=== PATIENT | female | born 1955 | race Caucasian/White ===

== ENCOUNTER 2020-01-04 12:13 | Outpatient (CLI) | payer MEDICARE, SELFPAY ==
--- NOTE | ~2020-01-04 | XR_ITS ---
XR chest 2V 01/04/2020 12:37 Indication: History of bladder cancer. Procedure: 2 view chest Comparison: Comparison to multiple prior studies sequentially, with oldest reviewed study dated 09/2014. Findings: Heart size normal. Elevated right diaphragm. Chronic right basilar scarring. No focal pneum onia, edema or effusion. No pneumothorax. Impression: 1: No acute cardiopulmonary disease. Reviewed, dictated and finalized at location A. Impression: 1: No acute cardiopulmonary disease.
== END 2020-01-04 12:14 | disposition home or self-care (01) ==
PROVIDERS: PCP Urology; Visit Provider Urology
DX: Z85.51 Personal history of malignant neoplasm of bladder (principal)
CPT/HCPCS: 71046

== ENCOUNTER → 2020-03-12 11:17 | Outpatient (CLI) | payer MEDICARE, SELFPAY ==
--- NOTE | ~2020-03-12 | DEXA_ITS ---
Bone Density Report Name: Aydee Lopez Age: 64 Sex: Female Ethnicity: White Date of : 1955 Indication: postmenopausal; screening for osteoporosis; height loss; hysterectomy; Referring Provider: KEKE ALTAMIRANO Study: Bone densitometry was performed. Exam Date: March 12, 2020 Accession number: [id number] Bone Density: Region BMD T-score Z-score Classification AP Spine (L1-L4) 1.022 -0.2 1.7 Normal Femoral Neck (Left) 0.916 0.6 2.2 Normal Total Hip (Left) 1.037 0.8 2.1 Normal Femoral Neck (Right) 0.882 0.3 1.9 Normal Total Hip (Right) 1.001 0.5 1.8 Normal Total Hip Mean 1.019 0.7 2.0 Normal World Health Organization criteria for BMD impression classify patients as: Normal (T-score at or above -1.0), Osteopenia (T-score between -1.0 and -2.5), or Osteoporosis (T-score at or below -2.5). 10-year Fracture Risk: FRAX not reported because: All T-scores for Spine Total, Hip Total, Femoral Neck at or above -1.0 Previous Exams: Region Exam Age BMD T-score BMD Change BMD Change Date g/cm2 vs Baseline vs Previous AP Spine(L1-L4) 03/12/2020 64 1.022 -0.2 0.074* 0.028* 03/19/2017 61 0.993 -0.5 0.046* 0.013 08/19/2013 58 0.980 -0.6 0.032* -0.023* 10/28/2009 54 1.004 -0.4 0.056* 0.056* 09/29/2006 51 0.948 -0.9 Total Hip(Left) 03/12/2020 64 1.037 0.8 0.013 -0.024 03/19/2017 61 1.061 1.0 0.037* -0.033* 08/19/2013 58 1.094 1.2 0.070* 0.025 10/28/2009 54 1.069 1.0 0.045* 0.045* 09/29/2006 51 1.024 0.7 Total Hip(Right) 03/12/2020 64 1.001 0.5 0.028* -0.034* 03/19/2017 61 1.035 0.8 0.062* 0.021 08/19/2013 58 1.014 0.6 0.041* 0.036* 10/28/2009 54 0.978 0.3 0.005 0.005 09/29/2006 51 0.973 0.3 *Denotes significance at 95% confidence level, LSC for AP Spine = 0.022 g/cm2, LSC for Total Hip = 0.027 g/cm2 Clinical Information Provided by Patient: Has used the following medications: Vitamin D Has the following medical conditions: Hysterectomy Patient maximum height was 67 Menopause Age: 41 No regular weight bearing exercise Drinks caffeinated beverages Onset of menses at age 10 Number of children 2 Impression: The patient has normal bone mass. The BMD
== END ==
DX: Z78.0 Asymptomatic menopausal state (principal)
CPT/HCPCS: 77080

== ENCOUNTER 2020-11-26 10:50 | Outpatient (CLI) | payer MEDICARE, SELFPAY ==
--- NOTE | ~2020-11-26 | XR_ITS ---
EXAMINATION: XR chest 2V DATE: 11/26/2020 11:13 INDICATION: History of bladder cancer TECHNIQUE: Frontal and lateral views of the chest are obtained COMPARISON: 01/04/2020 FINDINGS: The lungs are free of acute opacities. There is no pleural effusion or pneumothorax. The ca rdiomediastinal silhouette is normal. There is moderate thoracic spondylosis. IMPRESSION: 1. No acute cardiopulmonary abnormality. Reviewed, dictated and finalized at location A.
== END 2020-11-26 10:51 | disposition home or self-care (01) ==
PROVIDERS: Visit Provider Urology
DX: Z85.51 Personal history of malignant neoplasm of bladder (principal)
CPT/HCPCS: 71046

== ENCOUNTER → 2020-11-27 10:27 | Outpatient (CLI) | payer MEDICARE, SELFPAY ==
--- NOTE | ~2020-11-27 | MM_ITS ---
EXAMINATION: MM screening [facility] BI w claudia HISTORY: Screening TECHNIQUE: Craniocaudal and mediolateral oblique 3-D tomosynthesis images were obtained and synthetic 2-D images were generated. CAD analysis was submitted and interpreted. COMPARISON: Comparison to multiple prior studies sequentially, with oldest reviewed study dated 11/2014. BREAST PARENCHYMAL COMPOSITION: There are scattered areas of fibroglandular density. FINDINGS: There is no evidence of suspicious mass, calcification, or architectural distortion to sugg est malignancy in either breast. There has been no suspicious interval change. IMPRESSION: 1. No mammographic evidence of malignancy. 2. Recommend routine screening mammography in one year. BI-RADS Category 1: Negative Reviewed, dictated and finalized at location A.
== END ==
DX: Z12.31 Encounter for screening mammogram for malignant neoplasm of breast (principal)
CPT/HCPCS: 77063; 77067

== ENCOUNTER 2021-11-10 09:52 | Outpatient (CLI) | payer MEDICARE, SELFPAY ==
--- NOTE | ~2021-11-10 | XR_ITS ---
EXAMINATION: XR chest 2V DATE: 11/10/2021 10:14 INDICATION: Bladder cancer. TECHNIQUE: Frontal and lateral views of the chest were obtained. COMPARISON: Chest 2 views 11/26/2020 FINDINGS: There is chronic eventration of anterior right hemidiaphragm. No pleural effusion or pneumo thorax. The heart size is normal. IMPRESSION: 1. No acute cardiopulmonary disease. Reviewed, dictated and finalized at location B.
== END 2021-11-10 09:53 | disposition home or self-care (01) ==
PROVIDERS: Visit Provider Urology
DX: Z85.51 Personal history of malignant neoplasm of bladder (principal)
CPT/HCPCS: 71046

== ENCOUNTER → 2022-05-26 15:51 | Outpatient (CLI) | payer MEDICARE, SELFPAY ==
--- NOTE | ~2022-05-26 | MM_ITS ---
EXAMINATION: MM screening [facility] BI w claudia HISTORY: Screening TECHNIQUE: Craniocaudal and mediolateral oblique 3-D tomosynthesis images were obtained and synthetic 2-D images were generated. CAD analysis was submitted and interpreted. COMPARISON: Comparison to multiple prior studies sequentially, with oldest reviewed study dated 11/2014. BREAST PARENCHYMAL COMPOSITION: Breast composed of scattered areas of fibroglandular density FINDINGS: There is no evidence of suspicious mass, calcification, or architectural distortion to sugg est malignancy in either breast. There has been no suspicious interval change. IMPRESSION: 1. No mammographic evidence of malignancy. 2. Recommend routine screening mammography in one year. BI-RADS Category 1: Negative Reviewed, dictated and finalized at location A.
--- NOTE | ~2022-05-26 | DEXA_ITS ---
Bone Density Report Name: HADLEY SHORT Age: 67 Sex: Female Ethnicity: White Date of : 1955 Indication: postmenopausal; screening for osteoporosis; height loss; inflammatory bowel disease; prior fracture; hysterectomy; Referring Provider: KEKE ALTAMIRANO Study: Bone densitometry was performed. Exam Date: May 26, 2022 Accession number: [id number] Bone Density: Region BMD T-score Z-score Classification AP Spine (L1-L4) 1.022 -0.2 1.8 Normal Femoral Neck (Left) 0.912 0.6 2.3 Normal Total Hip (Left) 1.037 0.8 2.2 Normal Femoral Neck (Right) 0.843 -0.1 1.7 Normal Total Hip (Right) 0.995 0.4 1.9 Normal Total Hip Mean 1.016 0.6 2.1 Normal World Health Organization criteria for BMD impression classify patients as: Normal (T-score at or above -1.0), Osteopenia (T-score between -1.0 and -2.5), or Osteoporosis (T-score at or below -2.5). 10-year Fracture Risk: FRAX not reported because: All T-scores for Spine Total, Hip Total, Femoral Neck at or above -1.0 Prior hip or vertebral fracture Previous Exams: Region Exam Age BMD T-score BMD Change BMD Change Date g/cm2 vs Baseline vs Previous AP Spine(L1-L4) 05/26/2022 67 1.022 -0.2 0.074* 0.000 03/12/2020 64 1.022 -0.2 0.074* 0.028* 03/19/2017 61 0.993 -0.5 0.046* 0.013 08/19/2013 58 0.980 -0.6 0.032* -0.023* 10/28/2009 54 1.004 -0.4 0.056* 0.056* 09/29/2006 51 0.948 -0.9 Total Hip(Left) 05/26/2022 67 1.037 0.8 0.013 0.000 03/12/2020 64 1.037 0.8 0.013 -0.024 03/19/2017 61 1.061 1.0 0.037* -0.033* 08/19/2013 58 1.094 1.2 0.070* 0.025 10/28/2009 54 1.069 1.0 0.045* 0.045* 09/29/2006 51 1.024 0.7 Total Hip(Right) 05/26/2022 67 0.995 0.4 0.022 -0.007 03/12/2020 64 1.001 0.5 0.028* -0.034* 03/19/2017 61 1.035 0.8 0.062* 0.021 08/19/2013 58 1.014 0.6 0.041* 0.036* 10/28/2009 54 0.978 0.3 0.005 0.005 09/29/2006 51 0.973 0.3 *Denotes significance at 95% confidence level, LSC for AP Spine = 0.022 g/cm2, LSC for Total Hip = 0.027 g/cm2 Clinical Information Provided by Patient: Have had a previous hip or vertebral fracture Has had a low trauma fracture Has used the following medications: Vi
== END ==
DX: Z12.31 Encounter for screening mammogram for malignant neoplasm of breast (principal); Z78.0 Asymptomatic menopausal state; Z13.820 Encounter for screening for osteoporosis
CPT/HCPCS: 77063; 77067; 77080

== ENCOUNTER 2022-11-23 09:48 | Outpatient (CLI) | payer MEDICARE, SELFPAY ==
--- NOTE | ~2022-11-23 | XR_ITS ---
Clinical Indication: Bladder cancer PA and lateral views of the chest: Comparison: 11/10/2021 Findings: The lungs are clear, without evidence of focal consolidation or pleural effusion. Stable ev entration of the right hemidiaphragm. Cardiomediastinal silhouette is within normal limits. Bones and soft tissues are unremarkable. Impression: Clear lungs. Reviewed, dictated and finalized at location . Impression: Clear lungs.
== END 2022-11-23 09:49 | disposition home or self-care (01) ==
PROVIDERS: Visit Provider Urology
DX: Z85.51 Personal history of malignant neoplasm of bladder (principal)
CPT/HCPCS: 71046

== ENCOUNTER 2023-12-06 09:50 | Outpatient (CLI) | payer MEDICARE, SELFPAY ==
--- NOTE | ~2023-12-06 | XR_ITS ---
Clinical Indication: Bladder cancer PA and lateral views of the chest: Comparison: 11/23/2022 Findings: The lungs are clear, without evidence of focal consolidation or pleural effusion. Cardiome diastinal silhouette is within normal limits. Bones and soft tissues are unremarkable. Impression: Normal chest. Reviewed, dictated and finalized at location . Impression: Normal chest.
== END 2023-12-06 09:51 | disposition home or self-care (01) ==
PROVIDERS: Visit Provider Urology
DX: Z85.51 Personal history of malignant neoplasm of bladder (principal)
CPT/HCPCS: 71046

== ENCOUNTER 2024-04-06 13:09 | Outpatient (CLI) | payer MEDICARE, SELFPAY ==
--- NOTE | ~2024-04-06 | MM_ITS ---
EXAMINATION: MM screening [facility] BI w claudia HISTORY: Screening mammogram TECHNIQUE: Craniocaudal and mediolateral oblique 3-D tomosynthesis images were obtained and synthetic 2-D images were generated. CAD analysis was submitted and interpreted. COMPARISON: 05/26/2022, 11/27/2020, 07/29/2019, 05/31/2018 BREAST PARENCHYMAL COMPOSITION:Not Dense. The breasts are almost entirely fatty FINDINGS: No suspicious mass, calcification, or architectural distortion are identified in either yamilet ast to suggest malignancy. There has been no suspicious interval change. IMPRESSION: No mammographic evidence of malignancy. Recommend routine screening mammography in one year. BI-RADS Category 1: Negative Reviewed, dictated and finalized at location .
== END 2024-04-06 13:10 | disposition home or self-care (01) ==
DX: Z12.31 Encounter for screening mammogram for malignant neoplasm of breast (principal)
CPT/HCPCS: 77063; 77067

== ENCOUNTER 2024-10-30 13:34 | Outpatient (CLI) | payer MEDICARE, SELFPAY ==
--- NOTE | ~2024-10-30 | DEXA_ITS ---
Bone Density Report Name: HADLEY SHORT Age: 69 Sex: Female Ethnicity: White Date of : 1955 Indication: postmenopausal; screening for osteoporosis; height loss; hysterectomy; Referring Provider: EVELIA, KEKE Bryant Study: Bone densitometry was performed. Exam Date: October 30, 2024 Accession number: [id number] Bone Density: Region BMD T-score Z-score Classification AP Spine(L1-L4) 1.025 -0.2 2.0 Normal Femoral Neck (Left) 0.846 0.0 1.9 Normal Total Hip (Left) 1.049 0.9 2.5 Normal Femoral Neck (Right) 0.860 0.1 2.0 Normal Total Hip (Right) 1.038 0.8 2.4 Normal Total Hip Mean 1.044 0.9 2.5 Normal World Health Organization criteria for BMD impression classify patients as: Normal (T-score at or above -1.0), Osteopenia (T-score between -1.0 and -2.5), or Osteoporosis (T-score at or below -2.5). 10-year Fracture Risk: FRAX not reported because: All T-scores for Spine Total, Hip Total, Femoral Neck at or above -1.0 Clinical Information Provided by Patient: Has used the following medications: HRT (i.e. estrogen/hormone therapy), Vitamin D, Calcium Has the following medical conditions: Hysterectomy Patient maximum height was 66.0 Menopause Age: 41 No regular weight bearing exercise Onset of menses at age 9 Number of children 2 Impression: The patient has normal bone mass. Discussion: BONE DENSITY IS ABOVE THE MINIMUM DESIRABLE LEVEL AT ALL SKELETAL SITES TESTED. This patient?s bone mineral density is above the minimum desirable level (T-score -1.0 or better) at all sites measured. The patient should follow a healthful lifestyle (good nutrition with adequate calcium and vitamin D, and appropriate weight-bearing exercise). Follow-Up: Consider repeating this study in 5 years or sooner if there is some new clinical indication. Reported by: SIXTO on 10/30/2024 2:11:00 PM. Reviewed, dictated and finalized at location Jess FANG
--- OUTSIDE RECORDS SUMMARY | 2024-10-30 15:33 | XMS_ITS | Clinical Summary ---
Author Organization [facility] Address [address] [place] [address] Care Team Providers Care Kitchen Cleaner Name Role Phone Hoang Chadwick MD Primary Care Provider [phone] Rachel Lazo RN Unavailable [phone] Source Comments [facility],non-owned Affiliates and Associated Physician Practices is amultiple site organization consisting of ambulatory clinics and hospital sitesin [place], [place], [place] and [place]. This disclosure is being madepursuant to the Care Everywhere program and may not contain all information available regarding this patient. Last updated 18.[facility] Allergies Active Allergy Reactions Criticality Noted Date Comments Anthony Inhibitors Cough 01/08/2010 Adhesive Sensitivity 02/10/2014 Medications * Be aware that medications may not be up to date on this document. Alwaysverify current medications with the patient. Medication Sig Dispensed Refills Start Date End Date Status Nutritional Supplements (JUICE PLUS FIBRE PO) Take by mouth. Active hyoscyamine 0.125 MG tabletIndications:Isch emic colitis, enteritis, or enterocolitis (HCC) Dissolve 1 Tab under the tongue every 4 hours as needed for Spasms. 60 Tab 6 03/01/2013 Active PATADAY 0.2 % ophthalmic solution INSTILL 1 DROP ONCE DAILY DIRECTED 3 Bottle 3 08/18/2014 Active hydrochlorothiazide (HYDRODIURIL) 25 MG tablet TAKE 1 TABLET DAILY 90 Tab 2 09/19/2014 Active KLOR-CON M20 20 MEQ tablet TAKE 1 TABLET DAILY 90 Tab 2 09/19/2014 Active losartan (COZAAR) 50 MG tablet TAKE 1 TABLET DAILY 90 Tab 2 09/19/2014 Active levothyroxine (SYNTHROID) 100 MCG tablet TAKE 1 TABLET DAILY BEFORE BREAKFAST 90 Tab 2 09/19/2014 Active CRESTOR 5 MG tablet TAKE 1 TABLET DAILY 90 Tab 3 09/25/2014 Active triamcinolone acetonide (KENALOG) 0.1 % creamIndications:Atopi c eczema Apply to affected area 3 times daily. 80 g 3 09/28/2014 Active EFFEXOR XR 75 MG capsuleIndications:RAD (generalized anxiety disorder) 1 Cap daily with breakfast. 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 (AF LURIA, FLUZONE TRIVALENT; 6MO+) (IIV3) 04/14/2013,06/22/2012,04/22/2011, 010,07/10/2009 INFLUENZA VACCINE, QUADR. (A FLURIA, FLUZONE QUADRIVALENT; 6MO+) (IIV4) 05/23/2014 TDAP (7yrs+) 02/19/2014 Family History Medical History Relation Name Comments Thyroid Disease Brother Cancer Father Heart Disease Father Heart Failure Father Arthritis Mother Arthritis - Osteo Mother Heart Disease Mother Heart Failure Mother Hypertension Mother Relation Name Status Comments Brother Father Mother Social History Tobacco Use Types Packs/Day Years Used Date Smoking Tobacco: Never Tobacco Cessation:Counseling Given: Yes Alcohol Use Standard Drinks/Week Comments No 0 (1 standard drink = 0.6 oz pur e alcohol) Sex and Gender Information Value Date Recorded Sex Assigned at Not on file Gender Identity Not on file Sexual Orientation Not on file Last Filed Vital Signs Vital Sign Reading Time Taken Comments Blood Pressure 112/60 01/23/2015 11:02 AM CDT Pulse 86 02/12/2014 5:05 PM CDT Temperature 36.1 C (97 F) 02/12/2014 5:05 PM CDT Respiratory Rate 20 02/12/2014 5:05 PM CDT Oxygen Saturation 97% 02/12/2014 5:05 PM CDT Inhaled Oxygen Concentration - - Weight 91.6 kg (202 lb) 01/23/2015 11:02 AM CDT Height 167.6 cm (5' 6 ) 01/23/2015 11:02 AM CDT Body Mass Index 32.6 01/23/2015 11:02 AM CDT Plan of Treatment Health Maintenance Due Date Last Done Comments COLOGUARD (AGES 45-75) - COLON CA SCREENING 1955 CT COLONOGRAPHY - COLON CA SCREENING 1955 FIT - COLON CA SCREENING 1955 FLEX SIG - COLON CA SCREENING 1955 MEDICARE AWV 12 MONTHS 1955 HEPATITIS C SCREENING 04/05/1971 PNEUMOCOCCAL VACCINE 50+ (1 of 1 - PCV) 2003 ZOSTER VACCINE (1 of 2) 2003 BONE DENSITY TESTING 08/19/2015 08/19/2013 MAMMOGRAM 08/21/2015 08/21/2013, 07/27, 09/24/2011, Additional history exists COLON MONITORING 02/13/2024 02/12/2014, 02/12/2014 COLONOSCOPY - COLON CA SCREENING 02/13/2024 02/12/2014, 02/12/2014, 01/07/2005 Colorectal Cancer Screening 02/13/2024 DTAP/TDAP/TD VACCINES (2 - Td or Tdap) 02/20/2024 02/19/2014 COVID-19 VACCINE (1 - season) 2024 DEPRESSION SCREENING 07/26/2024 INFLUENZA VACCINE (Season Ended) 2025 05/23/2014, 04/14/2013, 06/22/2012, Additional history exists Respiratory Syncytial Virus (RSV) Vaccine Pt: or over 60 yrs (1 - 1-dose 75+ series) 2028 HEPATITIS B VACCINE Aged Out No longe r eligible based on patient's age to complete this topic HIB VACCINE Aged Out No longer eligi ble based on patient's age to complete this topic HPV VACCINE Aged Out No longer eligi ble based on patient's age to complete this topic MENINGOCOCCAL (Group B) VACCINE SHARED DECISION-MAKING Aged Out No longer eligible based on patient's age to complete this topic MENINGOCOCCAL GROUPS A/C/Y/W VACCINE Aged Out No longer eligible based on patient's age to complete this topic Goals Goal Patient Goal Type Associated Problems Recent Progress Patient-Stated? Author [facility] Lifestyle: Have labs drawn Lifestyle No Mabel Sanchez MA Procedures Procedure Name Priority Date/Time Associated Diagnosis Comments MAMMO BILAT SCREENING Routine 08/21/2013 DEXA BONE DENSITY 2 SITES Routine 08/19/2013 Screening for unspecified condition from Last 3 Months or Most Recently Relevant to Health Maintenance Results * MAMMO SCREENING DIGITAL IMAGE BILAT (08/21/2013) Anatomical Region Laterality Modality Breast Bilateral Other Provider Unknown MAMMO ORDERABLES * DEXA BONE DENSITY 2 SITES (08/19/2013) Anatomical Region Laterality Modality Other Hoang Chadwick MD DEXA ORDERABLES from Last 3 Months or Most Recently Relevant to Health Maintenance Advance Directives Documents on File Type Date Recorded Patient Advertising Columnist Expl anation Adv Directive/Living Will/POA 02/13/2014 4:23 PM * Full Code (Latest Code Status on File) Date Activated Date Inactivated Comments 02/10/2014 11:08 AM 02/12/2014 8:37 PM Care Teams Kitchen Cleaner Relationship Specialty Start Date End Date Hoang Chadwick MD [address] [id number] PCP - General 12/21/08 Rachel Lazo, RN Farmworker [employer] 02/12/14
--- OUTSIDE RECORDS SUMMARY | 2024-10-30 15:33 | XMS_ITS | Encounter Summary ---
Author Organization [facility] Address [address] [place] [address] Care Team Providers Care Naval Science Teacher Name Role Phone Hoang Chadwick MD Primary Care Provider + Hoang Chadwick MD Unavailable [phone] Encounter Details Date Type Department Care Team (Late st Contact Info) Description 12/06/2023 Orders Only [facility] [place] [address] [place] [address] Scanning, Provider Social History Tobacco Use Types Packs/Day Years Used Date Smoking Tobacco: Never Smokeless Tobacco: Never Alcohol Use Standard Drinks/Week Comments No 0 (1 standard drink = 0.6 oz pur e alcohol) AUDIT-C Answer Date Recorded Q1: How often do you have a drink containing alcohol? Never 08/06/2022 Q2: How many drinks containi ng alcohol do you have on a typical day when you are drinking? Patient does not drink Q3: How often do you have si x or more drinks on one occasion? 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 on file Not on file Not on file documented as of this encounter Plan of Treatment Not on file documented as of this encounter Procedures Procedure Name Priority Date/Time Associated Diagnosis Comments SCAN - RADIOLOGY/IMAGING 12/06/2023 documented in this encounter Results * SCAN - RADIOLOGY/IMAGING (12/06/2023) Anatomical Region Laterality Modality Other us Provider Scanning Final Result documented in this encounter Visit Diagnoses Not on filedocumented in this encounter Care Teams Naval Science Teacher Relationship Specialty Start Date End Date Hoang Chadwick MD [address] [address] PCP - General 10/26/16 Hoang Chadwick MD [address] [address] 10/26/16 documented as of this encounter
--- OUTSIDE RECORDS SUMMARY | 2024-10-30 15:33 | XMS_ITS | Encounter Summary ---
Author Organization [facility] Address [address] [place] [address] Care Team Providers Care Mica Laminating Machine Feeder Name Role Phone Hoang Chadwick MD Primary Care Provider [phone] Rachel Lazo RN Unavailable [phone] Encounter Details Date Type Department Care Team (Late st Contact Info) Description 11/12/2021 Lab Requisition [facility] Care Pathology Lab [address] [place] [address] Linda Sinha MD [address] [place], [place] [id number] Illness, unspecified Social History Tobacco Use Types Packs/Day Years Used Date Smoking Tobacco: Never Alcohol Use Standard Drinks/Week Comments No 0 (1 standard drink = 0.6 oz pur e alcohol) Sex and Gender Information Value Date Recorded Sex Assigned at Not on file Gender Identity Not on file Sexual Orientation Not on file documented as of this encounter Functional Status Functional Status Response Date of Assess ment Is person deaf or have serious hearing difficult y? No 02/10/2014 Is person blind or have serious difficulty seein g? No 02/10/2014 Does person have serious dif ficulty walking/climbing stairs? No 02/10/2014 Does person have difficulty dressing/bathing? No 02/10/2014 Does person have difficulty doing errands alone? No 02/10/2014 Cognitive Status Response Date of Assessm ent Does person have difficulty concentrating/remembering/making decisions? No 02/10/2014 documented as of this encounter Plan of Treatment Not on file documented as of this encounter Goals Goal Patient Goal Type Associated Problems Recent Progress Patient-Stated? Author [facility] Lifestyle: Have labs drawn Lifestyle No Mabel Sanchez MA documented as of this encounter Procedures Procedure Name Priority Date/Time Associated Diagnosis Comments PATH CONSULT ON REFERRED CASE Routine 11/12/2021 1:49 PM CDT Illness, unspecified documented in this encounter Results * PATH CONSULT ON REFERRED CASE (11/12/2021 1:49 PM CDT) Final Diagnosis Urine/Voided, (OSC: [id number], 11/10/2021): - Adequate for evaluation - Negative for high grade urothelial carcinoma - Urothelial cells and squamous cells 11/14/2021 3:38 PM CDT [facility] Amendment electronically signed by Aissatou Smith on 11/14/2021 at 3:38 PM Microscopic Description and Comment Performed. 11/14/2021 3:38 PM CDT [facility] Clinical History History of bladder cancer, Cystoscopy negative 11/14/2021 3:38 PM CDT [facility] Materials Received Prepared slide received from [facility] [id number]. All material will be returned. 11/14/2021 3:38 PM CDT [facility] Disclaimer The performance characteristics of all immunohistochemical and indirect immunofluorescence stains (if any) cited in this report were determined by the Histopathology Laboratory of [facility]. Some of these tests were developed by our own laboratory and have not been cleared or approved by the US Food and Drug Administration. The FDA does not require this test to go through premarket FDA review. These tests are used for clinical purposes. They should not be regarded as investigational or for research. This laboratory is certified under the Clinical Laboratory Improvement Amendments (CLIA) as qualified to perform high complexity clinical laboratory testing. This case has been personally reviewed and interpreted by the attending (teaching) pathologist. 11/14/2021 3:38 PM CDT [facility] Amended Report CHANGED Prepared slide received from [facility] [id number]. All material will be returned. TO Prepared slide received from [facility] [id number] All material will be returned. 11/14/2021 3:38 PM CDT [facility] Case Report Surgical Pathology Report Case: [id number] Authorizing Provider: Linda Sinha MD Collected: 11/12/2021 01:49 PM Ordering Location: [facility] Pathology Lab Received: 11/12/2021 01:49 PM Pathologist: Saran Coulter MD Specimen: Slide Consultation 11/14/2021 3:38 PM CDT [facility] Embedded Images 11/14/2021 3:38 PM CDT [facility] Pathology/Cytolo gy SURGICAL PATHOLOGY CONSULTATION AND REPORT ON REFERRED SLIDES PREPARED ELSEWHERE / Unknown 11/12/2021 1:49 PM CDT 11/12/2021 1:49 PM CDT Linda Sinha MD LAB - PATHOLOGY/CYTO LOGY ORDERABLES Performing Organization Address City/State/[place] Co de Phone Number [facility] [address] [phone] documented in this encounter Visit Diagnoses Diagnosis Illness, unspecified documented in this encounter Care Teams Mica Laminating Machine Feeder Relationship Specialty Start Date End Date Hoang Chadwick MD [address] [phone] PCP - General 12/21/08 Rachel Lazo, RN Label Cutter 02/12/14 documented as of this encounter
--- OUTSIDE RECORDS SUMMARY | 2024-10-30 15:34 | XMS_ITS | Referral Summary ---
Author Organization [facility] Address [facility] [place] [address] Care Team Providers Care Supervisor Phosphorus Processing Name Role Phone Hoang Chadwick MD Primary Care Provider + Hoang Chadwick MD Unavailable [phone] Encounters Date Type Department Care Team Description 09/14/2024 10:30 AM LUMBER TRIMMER Office Visit [facility] Primary Care at [facility] [address], [place] [address] Hoang Chadwick MD Hypercholesterolemia (Primary Dx); 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; Essential hypertension; Moderate episode of recurrent major depressive disorder (HCC); History of primary malignant neoplasm of urinary bladder 08/10/2024 Orders Only [facility] [address] [place] [address] Unknown, Notinfile from Last 3 Months Allergies Active Allergy Reactions Criticality Noted Date Comments Anthony Inhibitors Cough Low Adhesive Tape-Silicones Rash Medium Oxybutynin Other (See comments) Low 04/14/2019 Nose bleed Medications aspirin 325 mg tablet take 1 tablet by oral route every day 0 0 7 Active cholecalciferol (VITAMIN D-3) 2,000 unit tablet 2 (two) times a day Active fish oil-dha-epa 1,200-144-216 mg capsule Take by mouth 2 (two) times a day Active cetirizine (ZyrTEC) 10 mg tablet Take 1 tablet (10 mg total) by mouth daily Active hydroCHLOROthiazi de (HYDRODIURIL) 25 mg tablet Take 1 tablet (25 mg total) by mouth daily 100 tablet 2 4 Active dicyclomine (BENTYL) 10 mg capsule Take 1 capsule (10 mg total) by mouth 3 (three) times a day as needed (abdominal cramping) 60 capsule 2 4 Active losartan (COZAAR) 100 mg tabletIndications :Essential hypertension Take 1 tablet (100 mg total) by mouth daily 100 tablet 2 4 Active Myrbetriq 50 mg tablet extended release 24 hr Take 1 tablet (50 mg total) by mouth daily 100 tablet 2 4 Active potassium chloride ER 20 mEq CR tablet Take 1 tablet (20 mEq total) by mouth daily 100 tablet 2 4 Active hyoscyamine (Levsin/SL) 0.125 mg SL tablet Take 1 tablet (0.125 mg total) by mouth every 6 (six) hours as needed for cramping 60 tablet 3 4 Active levothyroxine (SYNTHROID) 75 mcg tablet Take 1 tablet (75 mcg total) by mouth neuro urologist before breakfast 90 tablet 3 4 Active triamcinolone (KENALOG) 0.1 % cream APPLY TO AFFECTED AREA(S) TOPICALLY 3 TIMES DAILY NEEDED 160 g 1 4 Active venlafaxine XR (EFFEXOR-XR) 150 mg 24 hr capsule TAKE 1 CAPSULE BY MOUTH DAILY 100 capsule 2 4 Active clobetasoL (TEMOVATE) 0.05 % external solution APPLY TOPICALLY TWICE DAILY 200 mL 4 Active simvastatin (ZOCOR) 40 mg tablet TAKE 1 TABLET BY MOUTH EVERY NIGHT 100 tablet 1 5 Active metoprolol XL (TOPROL-XL) 50 mg extended release tabletIndications :SVT (supraventricular tachycardia) TAKE 1 TABLET BY MOUTH DAILY 100 tablet 1 5 Active Active Problems Problem Noted Date Diagnosed Date Hx of colonic polyps 03/05/2022 Overview (03/05/2022): Added automatically from request for surgery [id number] Assessment & Plan (11/03/2023 3:51 PM CDT): Due for colonoscopy 5 years. BMI 30.0-30.9,adult 02/23/2020 SVT (supraventricular tachycardia) 04/25/2018 Moderate episode of recurrent major depressive d isorder 02/10/2016 Overview (10/29/2016): Moderate episode of recurrent major depressive disorder Hypercholesterolemia 06/10/2015 Overview (10/29/2016): Hypercholesterolemia Hypothyroidism 06/10/2015 Overview (10/29/2016): Hypothyroidism Ischemic colitis 06/10/2015 Overview (10/29/2016): Ischemic colitis Assessment & Plan (11/03/2023 3:51 PM CDT): I feel that this episode of of abdominal pain followed by significant bleeding and thickening of the sigmoid descending colon was more likely and clinically consistent with ischemic colitis as opposed to diverticulitis. Exacerbating factors could have been constipation, hypotension as the patient does seem to have a vagal response. She is doing well now and just had a colonoscopy last year. I am recommending that she try to avoid being constipated by going back on her fiber supplement which she had stopped. I recommend the equivalent of 2 fiber gummies or 2 tsp of Metamucil once daily and I feel that she should also add the MiraLax half a capful once a day to avoid constipation. She is going to see how this goes and if she has more problems she is to notify me . Otherwise her next colonoscopy would be in 5 years for follow-up of polyps. Assessment & Plan (05/22/2019 11:13 AM CDT): Has been previously investigated and a CT angiogram was normal in the past. I advised her to continue on the MiraLax to avoid episodes of significant constipation and follow-up blood pressures. If her systemic blood pressures are consistently running low then she may need adjustment in her medication to maintain colonic perfusion. Right now everything seems to be doing well. I would recommend repeat colonoscopy December 2021 for follow-up of polyps Macular degeneration 06/10/2015 Overview (10/29/2016): Macular degeneration Essential hypertension 06/10/2015 Overview (10/29/2016): Essential hypertension Diverticulosis of colon Resolved Problems Problem Noted Date Diagnosed Date Resolved Date Malignant neoplasm of urinary bladder 06/10/2015 09/14/2024 Overview (10/29/2016): Bladder cancer Immunizations Immunization Administration Dates Next Due Influenza, Quad, Adjuvantate d, Intramuscular 04/06/2024,03/27/2023,07/25/2022 Influenza, Quadrivalent, Hig h Dose, Preservative Free, Intrr 04/12/2021 Influenza, Quadrivalent, Spl it, Preservative Free, Intradermal 06/10/2016,06/10/2015 Influenza, Trivalent, High D ose, Split, Preservative Free, Intramuscular 05/09/2019,04/25/2018 Influenza, Unspecified 09/09/2022(Deferr ed: Patient Refused),07/25/2022,05/09/2020, 017 Moderna Sars-cov-2 Bivalent Vaccine 50 Mcg/0.5 mL (12+ YRS)-Blue/Foote 04/06/2024 Pfizer SARS-CoV-2 Monovalent Vaccination (12+ Yrs) PURPLE 08/08/2021,10/24/2020,10/13/2020,09/23 Pneumococcal Conjugate PCV 13 04/25/2018 Pneumococcal Polysaccharide PPV23 05/09/2019 Tdap 04/06/2024,02/19/2014 ZOSTER LIVE 08/11/2015 ZOSTER Recombinant 02/09/2020,09/13/2019 Social History Tobacco Use Types Packs/Day Years Used Date Smoking Tobacco: Never Smokeless Tobacco: Never Tobacco Cessation:Counseling Given: Not Answered Alcohol Use Standard Drinks/Week Comments No 0 (1 standard drink = 0.6 oz pur e alcohol) AUDIT-C Answer Date Recorded Q1: How often do you have a drink containing alcohol? Never 08/06/2022 Q2: How many drinks containi ng alcohol do you have on a typical day when you are drinking? Patient does not drink 3 Q3: How often do you have si x or more drinks on one occasion? 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 Not on file Not on file Not on file Last Filed Vital Signs Vital Sign Reading Time Taken Comments Blood Pressure 124/74 09/14/2024 10:27 AM LUMBER TRIMMER Pulse 80 09/14/2024 10:27 AM LUMBER TRIMMER Temperature 36.3 C (97.3 F) 01/29/2024 3:56 PM CDT Respiratory Rate 18 01/29/2024 3:56 PM CDT Oxygen Saturation 96% 09/14/2024 10:27 AM LUMBER TRIMMER Inhaled Oxygen Concentration - - Weight 87.5 kg (193 lb) 09/14/2024 10:27 AM LUMBER TRIMMER Height 165.1 cm (5' 5 ) 09/14/2024 10:27 AM LUMBER TRIMMER Body Mass Index 32.12 09/14/2024 10:27 AM LUMBER TRIMMER Plan of Treatment Not on file Procedures Procedure Name Priority Date/Time Associated Diagnosis Comments SURGICAL PATHOLOGY Routine 08/10/2024 11 :00 AM LUMBER TRIMMER SCREENING MAMMOGRAM 2D BILATERAL Schedule Routine, Read Routine (OP Routine) 04/06/2024 2:39 PM CDT COLONOSCOPY 08/06/2022 10:14 AM LUMBER TRIMMER DEXA AXIAL SKELETON BONE DENSITY 1 OR MORE SITES Schedule Routine, Read Routine (OP Routine) 05/26/2022 HEPATITIS C ANTIBODY Routine 09/13/2017 10:12 AM LUMBER TRIMMER Encounter for hepatitis C screening test for low risk patient from Last 3 Months or Most Recently Relevant to Health Maintenance Results * Surgical pathology (08/10/2024 11:00 AM LUMBER TRIMMER) Skin, shave biopsy 08/10/2024 11:00 AM LUMBER TRIMMER 08/11/2024 7:04 AM LUMBER TRIMMER Narrative 08/15/2024 5:06 PM LUMBER TRIMMER EPIC results best viewed via link to PDF [facility] [address] [place] [address], [address], [place] [address] [email or web address] Note to Patients: This report may contain a detailed description of human tissue sent by a health care provider to the laboratory for pathologic evaluation. The content of this report is essential for diagnosis and may provide important critical findings. This information may be unfamiliar to patients to review without a medical professional present. It is advised that the patient review this report in the presence of a health care provider who can answer questions and explain the details. FINAL REPORT Patient Information: PATIENT NAME: AYDEE LOPEZ SEX: F : 1955 (Age: 69) Specimen Information: COLLECTED: 08/10/2024 RECEIVED: 08/11/2024 REPORTED: 08/15/2024 Submitting Physician Information: Mechelle Strong, [facility], [address] [place] [address], DERMATOPATHOLOGY REPORT RESULTS DIAGNOSIS: SKIN, LEFT ACHILLES SKIN, SHAVE BIOPSY: DERMATOPHYTOSIS sxt/lac By this signature, I attest that the above diagnosis is based upon my personal examination of the slides(and/or other material indicated in the diagnosis). Sherin Hunt M.D. Report Electronically Reviewed and Signed Out By Sherin Hunt M.D. 08/15/2024 17:06:50 CLINICAL INFORMATION DERMATITIS UNSPECIFIED VS PSORIASIS VS TINEA CORPORIS VS NUMMULAR ECZEMA SPECIMEN DATA MICROSCOPIC DESCRIPTION: There are numerous hyphae within the cornified layer. (B35.9) GROSS DESCRIPTION: Received in a formalin-containing bottle is a superficial fragment of pale pineda, finely scaling, and semi-translucent skin measuring 1.0 by 0.8 by 0.1 cm. The surgical margin is inked blue. The specimen is sectioned into 3 pieces and submitted entirely in a single cassette. Due to shrinkage, measurements may be different than those at the time of procedure. dh/mxf ICD-9 A; ZSD.509 Clerical Data A; 45244 The characteristics of special, immunohistochemical, and immunofluorescence stains and in-situ hybridization tests performed by the [facility] were deemed acceptable in ongoing quality control specialist measures and in compliance with regulations drawn from the Clinical Laboratory Improvement Act gt4574 (CLIA '88). Control reactions for all stains performed were deemed adequate and appropriate by a pathologist prior to evaluation of patient tissue. Some diagnoses were rendered with the assistance of laboratory-developed tests utilizing analyte-specific reagents; the performance characteristic of these tests were determined by [facility] and are not cleared or approved by the [place] Food an Drug administration. Laboratory developed test may only be performed in a facility that is certified by the [facility] as a high-complexity laboratory under CLIA '88. These tests are used for clinical purposes and are not investigational. Notinfile Unknown LAB PATHOLOGY ORDERABLES Final Result * Screening Mammogram 2D Bilateral (04/06/2024 2:39 PM CDT) SCRIBED BI-RADS 1 Anatomical Region Laterality Modality Breast Bilateral Mammography Historical Provider MD SALDAÑA MAMMO PROCEDURES Elisa l Result * COLONOSCOPY (08/06/2022 10:14 AM LUMBER TRIMMER) Anatomical Region Laterality Modality Other Narrative Procedure Note Linden Henry MD - 08/06/2022 10:14 AM CST ENDOSCOPY LAB Patient Name: Aydee Lopez Procedure Date: 08/06/2022 10:14 AM Admit Type: Outpatient Room: [facility] Date of : 1955 Instrument Name: [id number] Gender: Female Note Status: Finalized Procedure: Colonoscopy Indications: High risk colon cancer surveillance: Personalhistory of colonic polyps, Last colonoscopy: December 2016;Remote hx of ischemic colitis . Hx of alternating constipation /diarrhea. Takes Benefiber andMiralax. Providers: Linden Henry M.D. Referring MD: Hoang Chadwick M.D. Medicines: Propofol per Anesthesia Complications: No immediate complications. Estimated Blood Loss: Estimated blood loss: none. Procedure: Pre-Anesthesia Assessment: - The risks and benefits of the procedure and the sedation options and risks were discussed with the patient. All questions were answered and informed consent was obtained. The benefits, risks and alternatives of theprocedure and sedation were discussed and informed consentwas obtained. All questions were answered. Please referto the signed informed consent document in the medical record. The scope was passed under direct vision.The Colonoscope was introduced through the anus and advanced to the the terminal ileum, with identification of the appendiceal orifice and IC valve. The colonoscopy was performed without difficulty. The patient tolerated the procedurewell. The quality of the bowel preparation was good. The quality of the bowel preparation was evaluatedusing the BBPS (Barnwell Bowel Preparation Scale) withscores of: Right Colon = 3 (entire mucosa seen well withno residual staining, small fragments of stool oropaque liquid), Transverse Colon = 3 (entire mucosa seenwell with no residual staining, small fragments of stoolor opaque liquid) and Left Colon = 3 (entire mucosaseen well with no residual staining, small fragments of stool or opaque liquid). The total BBPS scoreequals 9. The quality of the bowel preparation wasexcellent. The bowel preparation used was polyethylene glycol (PEG) via split dose instruction. Findings: A few diverticula were found in the sigmoid colon. The exam was otherwise without abnormality on direct and retroflexion views. Impression: - Diverticulosis in the sigmoid colon. - The examination was otherwise normal on directand retroflexion views. - No specimens collected. Recommendation: - Repeat colonoscopy in 5 years for surveillance. Electronically signed by Linden Henry MD Linden Henry M.D. 08/06/2022 10:49:37 AM This document was signed electronically. Number of Addenda: 0 Note Initiated On: 08/06/2022 10:14 AM Scope In: Scope Out: Linden Henry MD ENDOSCOPY PROCEDURES Final Result * Dexa Axial Skeleton Bone Density 1 or 2 Site (05/26/2022) Pathologist [facility] SCRIBED DXA T-SCORE -0.2 SCRIBED DXA Z-SCORE 1.7 SCRIBED DXA BMD 0.843 Anatomical Region Laterality Modality Body N/A Radiographic Flora ging [facility] Provider IMG DXA PROCEDURES Final Result * Hepatitis C antibody (09/13/2017 10:12 AM LUMBER TRIMMER) Pathologist [facility] Hep C Ab Non-Reactiv e Non-Reactiv e [facility] Blood specimen (specimen) 09/13/2017 10:12 AM LUMBER TRIMMER 09/13/2017 2:37 PM LUMBER TRIMMER Narrative [facility] - 09/13/2017 3:42 PM LUMBER TRIMMER Hoang Chadwick MD LAB MICROBIOLOGY - GENER AL ORDERABLES Final Result [facility] [address] Department [place] [address] from Last 3 Months or Most Recently Relevant to Health Maintenance Insurance MEDICARE COMMERCIAL GENERIC [facility] MEDICARE ADVANTAGE [facility] MEDICARE ADVANTAGE [facility] MEDICARE ADVANTAGE Advance Directives For more information, please contact: [phone] * Full Code (Latest Code Status on File) Date Activated Date Inactivated Comments 08/06/2022 9:14 AM 08/06/2022 6:53 PM * Full Code Date Activated Date Inactivated Comments 04/14/2019 6:13 PM 04/16/2019 5:39 PM Care Teams Supervisor Phosphorus Processing Relationship Specialty Start Date End Date Hoang Chadwick MD [address] [address] PCP - General 10/26/16 Hoang Chadwick MD [address] [address] 10/26/16
--- OUTSIDE RECORDS SUMMARY | 2024-10-30 15:34 | XMS_ITS | Continuity of Care Document ---
Author Organization [facility] Address [address] [place] [address] Phone Care Team Providers Care Chair Spring Assembler Name Role Phone Gareth SCHNEIDER, [place] Unavailable Unavailabl e Allergies, Adverse Reactions, Alerts Substance Reaction Status Criticality adhesive tape Active No Information ROBERT Inhibitors Active No Informatio n Medications Medication Instructions Dosage Effective Dates (start - stop) Status Comments ASPIRIN (unknown strength) chew 1 tablet by oral route every day Not Available - Active EFFEXOR XR (unknown strength) take 1 capsule by oral route every day with food Not Available - Active FLUCONAZOLE (unknown strength) take 2 tablet by oral route every day Not Available - Active HYDROCHLOROTHIAZIDE (unknown strength) take 1 capsule by oral route every day Not Available - Active KLOR-CON (unknown strength) take 1 packet by oral route 4 times every day dissolved in 4-6 ounces of cold water or juice Not Available - Active TIROSINT (unknown strength) take 1 capsule by oral route every day Not Available - Active LEVSIN (unknown strength) take 1 tablet by oral route every 4 hours as needed Not Available - Active ALAWAY (unknown strength) instill 1 drop by ophthalmic route 2 times every day into affected eye(s) Not Available - Active ZOCOR (unknown strength) take 1 tablet b y oral route every day in the evening Not Available - Active MYRBETRIQ (unknown strength) take 1 tablet by oral route every day swallowing whole with water. Do not crush, chew and/or divide. Not Available - Active Procedures Procedure Date OFFICE/OUTPATIENT VISIT EST OFFICE CONSULTATION Advance Directives Directive Yes / No Effective Date File Name No Information Encounters Encounter Description Practice Location Reason(s) For Visit Diagnoses Date Provider Providers Copied on Encounter [facility] , [address], [place], [address], [place] tel:[phone] [facility] No Information Gareth Hamsa. [address], [place], [place], [id number]. tel:[phone] OFFICE/OUTPAT IENT VISIT EST [facility] , [address], [place], [address], [place] tel:[phone] [facility] allergy evaluation (chief complaint) Allergic drug rashPenicilli n allergy Gareth Hamsa. [address], [place], [place], [id number]. tel:[phone] OFFICE CONSULTATION [facility] , [address], [place], [place], [facility], tel:[phone] [facility] allergy evaluation (chief complaint) Allergic drug rash Gareth Hamsa. [address], [place], [place], [id number]. tel:[phone] Family History Family Member Type Diagnosis Age At Onset Mother Problem (finding) coronary arterioscleros is Problem (finding) Family history of coronary arteriosclerosis Problem (finding) Family history of malignant neoplasm of urinary bladder Payers Payer name Insurance type Covered alliance party ID Authoriza tion(s) [facility] Choice/Choice Plus E2 [id number] Social History Type Description Quantity Date Captured Comments Sex Female Smoking Status No Information Chief Complaint And Reason For Visit No Information Reason For Referral Reason For Referral No Information History Of Present Illness Encounter Date Complaint History Of Prese nt Illness allergy evaluation here for peni cillin skin test , she has stopped her anti-histamine for 7 days and the only c/o she has is some sneezing , she was out in the sum recently and she has mild dry skin and itching on her arms, other oquendo she has no complaints Patient has tolerated keflex and Amoxicillin in the past ,she has tolerated IV dye in the past , was recently seen in the ER with abdomen pain, CT abdomen with IV dye was done and she was given IV zosyn followed by PO Amoxicillin ,she developed a rash at least 5 days after , she had by then finished a 7 days course fo Amoxicillin 'The rash was itchy , it resolved with one course of prednisone, no rebound after she stopped the steroids allergy evaluation Referred by Jean Chadwick, patient developed a very itchy rash which 100% resolved after prednisone, she had no hives and no rebound after stopping the prednisone , she was seen in the ER for symptoms of IBS which turned out to be ischemic colitis- She does not have a sensitive skin , no hx of hives in the past She has used Amoxicillin in the past 30+ years ago and she recalls no reaction , may have taken keflex and did well She had a CT abdomen with dye - january 2014 was the last time and did well ,this time she had the CT with dye - October 26 , ER gave her IV zosyn and then PO amoxicillin on -October 30 for one week The rash started on the started with itching and then rash was worse on november 12No systemic symptoms and no constitutional symptoms Functional Status Date Functional Assessmen t No Information Instructions Date Instruction Additional Infor chapo in preparation for a skin test , she will Avoid antihistamines including oral, topical, eye drops and nasal sprays; avoid using topical steroids on your back; no oral steroids for 7 days before the skin test. Related to Allergic drug rash Assessments Type Assessment Date No Information Patient Care Teams Name Effective Dates (start - stop) Status Members No Information
--- OUTSIDE RECORDS SUMMARY | 2024-10-30 15:34 | XMS_ITS | Encounter Summary ---
Author Organization [facility] Address [address] [place] [address] Phone Care Team Providers Care Oncology Social Worker Name Role Phone Hoang Chadwick MD Primary Care Provider + Hoang Chadwick MD Unavailable [phone] Encounter Details Date Type Department Care Team (Late st Contact Info) Description 09/13/2017 Orders Only [facility] ProviderSarah MD [address] [place] [address] Social History Tobacco Use Types Packs/Day Years Used Date Smoking Tobacco: Never Smokeless Tobacco: Never Alcohol Use Standard Drinks/Week Comments No 0 (1 standard drink = 0.6 oz pur e alcohol) Comments Unknown Sex and Gender Information Value Date Recorded Sex Assigned at Not on file Legal Sex Female 9:04 PM CDT Gender Identity Not on file Sexual Orientation Not on file 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 us Historical Provider LAB BLOOD ORDERABLES Elisa l Result documented in this encounter Visit Diagnoses Not on filedocumented in this encounter Care Teams Oncology Social Worker Relationship Specialty Start Date End Date Hoang Chadwick MD [address] [address] PCP - General 10/26/16 Hoang Chadwick MD [address] [facility] [address] [address] 10/26/16 documented as of this encounter
--- OUTSIDE RECORDS SUMMARY | 2024-10-30 15:34 | XMS_ITS | Clinical Summary ---
Author Organization [facility] Address [address] [place] [address] Care Team Providers Care Route Inspector Name Role Phone Hoang Chadwick MD Primary Care Provider + Hoang Chadwick MD Unavailable [phone] Allergies Active Allergy Reactions Criticality Noted Date [...] 1 tablet (75 mcg total) by mouth under cutting machine operator before breakfast 90 tablet 3 4 Active [...] (03/05/2022): Added automatically from request for surgery [id number] Assessment & Plan (11/03/2023 3:51 PM CDT): [...] bladder 06/10/2015 09/14/2024 Overview (10/29/2016): Bladder cancer Encounters Date Type Department Care Team Description 09/14/2024 10:30 AM APARTMENT MAINTENANCE MANAGER Office Visit [facility] Medical Group Primary Care at [facility] 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; Essential hypertension; Moderate episode of recurrent major depressive disorder (HCC); History of primary malignant neoplasm of urinary bladder 08/10/2024 Orders Only [facility] [address] [place] [address] Unknown, Notinfile from Last 3 Months Immunizations Immunization Administration Dates Next Due Influenza, [...] 04/06/2024,02/19/2014 ZOSTER LIVE 08/11/2015 ZOSTER Recombinant 02/09/2020,09/13/2019 Surgical History Surgery Date Site/Laterality Comments TOTAL ABDOMINAL HYSTERECTOMY 01/24/1996 - 02/23/1996 Hysterectomy, total COLONOSCOPY 01/20/2017 One 5 mm polyp in the cecum, Resected and retrieved. One 3 mm polyp in the cecum. Resected and retrieved. FLEXIBLE SIGMOIDOSCOPY 10/28/2016 schemic colitis. Mild non-specific architectural changes. Negative for active colitis. BLADDER TUMOR EXCISION 09/23/2014 - 10/23/2014 COLONOSCOPY 08/06/2022 Diverticulosis in the sigmoid colon. Exam otherwise normal. No specimens collected. Repeat 5 years. Medical History Medical History Date Comments Hyperlipidemia Hyperlipidemia; Comments: RRG 06/10/2015 - Depression Depression Hypertension Hypertension Disorder of thyroid Thyroid dise ase Ischemic colitis Ischemic coliti s; Comments: RRG 06/10/2015 - Malignant neoplasm of urinar y bladder (HCC) Cancer, bladder; Comments: R RG 06/10/2015 - Colon polyp Hypothyroidism Anxiety Overactive bladder SVT (supraventricular tachycardia) Hypercholesterolemia 06/10/2015 Hypercholes terolemia Essential hypertension 06/10/2015 Essential hypertension BMI 30.0-30.9,adult 02/23/2020 Macular degeneration 06/10/2015 Macular deg eneration Hx of colonic polyps 03/05/2022 Added autom atically from request for surgery [id number] Diverticulosis of colon Moderate episode of recurren t major depressive disorder (HCC) 02/10/2016 Moderate episode of recurren t major depressive disorder Family History Medical History Relation Name Comments Hyperlipidemia Brother 1 Hyperlipidemi a; Hypertension Brother 1 Irritable bowel syndrome Brother 1 Crohn's disease Brother 3 Crohn's dise ase; Bladder Cancer Father Cancer, bladd er; Coronary artery disease Father Coronary artery disease Mother Hetal nary artery disease; Hypertension Mother Hypertension; Irritable bowel syndrome Mother Hyperlipidemia Sister Hyperlipidemi a; Hypertension Sister Irritable bowel syndrome Sister Relation Name Status Comments Brother 1 Alive Brother 2 Brother 3 Alive Father Mother Sister Alive Social History Tobacco Use Types Packs/Day Years [...] 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 Not on file Not on file Obstetrics History Last Filed Vital Signs Vital Sign Reading Time Taken Comments Blood Pressure 124/74 09/14/2024 10:27 AM APARTMENT MAINTENANCE MANAGER Pulse 80 09/14/2024 10:27 AM APARTMENT MAINTENANCE MANAGER Temperature 36.3 C (97.3 F) 01/29/2024 3:56 PM CDT Respiratory Rate 18 01/29/2024 3:56 PM CDT Oxygen Saturation 96% 09/14/2024 10:27 AM APARTMENT MAINTENANCE MANAGER Inhaled Oxygen Concentration - - Weight 87.5 kg (193 lb) 09/14/2024 10:27 AM APARTMENT MAINTENANCE MANAGER Height 165.1 cm (5' 5 ) 09/14/2024 10:27 AM APARTMENT MAINTENANCE MANAGER Body Mass Index 32.12 09/14/2024 10:27 AM APARTMENT MAINTENANCE MANAGER Plan of Treatment Health Maintenance Due Date Last Done Comments Osteoporosis Screening-Bone Density Scan 05/26/2024 05/26/2022, 03/12/2020, 03/19/2017 Covid-19 Vaccine (2023-2 5 season) 2024 04/06/2024, 04/21/2023, 07/25/2022, Additional history exists Well Visit 65+ 03/16/2025 03/16/2024, 02/23, 03/09/2022, Additional history exists Breast Cancer Screening-Mammogram 04/06/2025 04/06/2024, 05/26/2022, 11/27/2020, Additional history exists Depression Screening 09/14/2025 09/14/2024, 03/16/2024, 03/09/2023, Additional history exists Fall Risk Assessment 09/14/2025 09/14/2024, 03/09/2023, 03/09/2022, Additional history exists Colon Cancer Screening-Colonoscopy 08/06/2032 08/06/2022, 01/20/2017, 01/20/2017 DTaP/Tdap/Td Vaccine (3 - Td or Tdap) 04/06/2034 04/06/2024, 02/19/2014 Hepatitis C Screening Completed 09/13/2017 Pneumococcal vaccine 65+ Completed 05/09/2019, 10/0 07/2017 Zoster Vaccine Completed 02/09/2020, 08/26, 08/11/2015 Colon Cancer Screening-CT Colonography Discontinued 08/06/2022, 01/20/2017, 01/20/2017, Additional history exists Colon Cancer Screening-DNA Stool Discontinued 08/06/2022, 01/20/2017, 01/20/2017, Additional history exists Colon Cancer Screening-FIT Discontinued 08/06, 01/20/2017, 01/20/2017, Additional history exists Colon Cancer Screening-Sigmoidoscopy Discontinued 08/06/2022, 01/20/2017, 01/20/2017, Additional history exists Hepatitis B Screening Completed 03/16/2024 Influenza Vaccine Completed 04/06/2024, , 07/25/2022, Additional history exists Procedures Procedure Name Priority Date/Time Associated Diagnosis Comments SURGICAL PATHOLOGY Routine 08/10/2024 11 :00 AM APARTMENT MAINTENANCE MANAGER SCREENING MAMMOGRAM 2D BILATERAL Schedule Routine, Read Routine (OP Routine) 04/06/2024 2:39 PM CDT COLONOSCOPY 08/06/2022 10:14 AM APARTMENT MAINTENANCE MANAGER DEXA AXIAL SKELETON BONE DENSITY 1 OR MORE SITES Schedule Routine, Read Routine (OP Routine) 05/26/2022 HEPATITIS C ANTIBODY Routine 09/13/2017 10:12 AM APARTMENT MAINTENANCE MANAGER Encounter for hepatitis C screening test for low risk patient from Last 3 Months or Most Recently Relevant to Health Maintenance Results * Surgical pathology (08/10/2024 11:00 AM APARTMENT MAINTENANCE MANAGER) Skin, shave biopsy 08/10/2024 11:00 AM APARTMENT MAINTENANCE MANAGER 08/11/2024 7:04 AM APARTMENT MAINTENANCE MANAGER Narrative 08/15/2024 5:06 PM APARTMENT MAINTENANCE MANAGER [facility] results best viewed via link to PDF [facility] [address] [place] [address], [address], [place] [address] [email or web address] Note to Patients: This report may contain [...] REPORTED: 08/15/2024 Submitting Physician Information: Mechelle Strong, [facility], [address] [place] [address], DERMATOPATHOLOGY REPORT RESULTS DIAGNOSIS: SKIN, LEFT ACHILLES [...] dh/mxf ICD-9 A; ZSD.509 Clerical Data A; 28163 The characteristics of special, immunohistochemical, and immunofluorescence stains and in-situ hybridization tests performed by the [facility] were deemed acceptable in ongoing quality control projectionist measures and in compliance with regulations drawn from the Clinical Laboratory Improvement Act pu0547 (CLIA '88). Control reactions for all stains performed were deemed adequate and appropriate by a pathologist prior to evaluation of patient tissue. Some diagnoses were rendered with the assistance of laboratory-developed tests utilizing analyte-specific reagents; the performance characteristic of these tests were determined by [facility] and are not cleared or approved by the [place] Food an Drug administration. Laboratory developed test may only be performed in a facility that is certified by the [facility] as a high-complexity laboratory under CLIA '88. These tests are used for clinical purposes and are not investigational. Notinfile Unknown LAB PATHOLOGY ORDERABLES Final Result * Screening Mammogram 2D Bilateral (04/06/2024 2:39 PM CDT) SCRIBED BI-RADS 1 Anatomical Region Laterality Modality Breast Bilateral Mammography Historical Provider MD SALDAÑA MAMMO PROCEDURES Elisa l Result * COLONOSCOPY (08/06/2022 10:14 AM APARTMENT MAINTENANCE MANAGER) Anatomical Region Laterality Modality Other Narrative Procedure Note Linden Henry MD - 08/06/2022 10:14 AM CST ENDOSCOPY LAB Patient Name: Aydee Lopez Procedure Date: 08/06/2022 10:14 AM Admit Type: Outpatient Room: [facility] 3 Date of : 1955 Instrument Name: CF-HQ170 Gender: Female Note Status: Finalized Procedure: Colonoscopy [...] the bowel preparation was evaluatedusing the BBPS ([place] Bowel Preparation Scale) withscores of: Right Colon [...] Bone Density 1 or 2 Site (05/26/2022) SCRIBED DXA T-SCORE -0.2 SCRIBED DXA Z-SCORE 1.7 SCRIBED DXA BMD 0.843 Anatomical Region Laterality Modality Body N/A Radiographic Flora ging Historical Provider IMG DXA PROCEDURES Final Result * Hepatitis C antibody (09/13/2017 10:12 AM APARTMENT MAINTENANCE MANAGER) Hep C Ab Non-Reactiv e Non-Reactiv e [facility] Blood specimen (specimen) 09/13/2017 10:12 AM APARTMENT MAINTENANCE MANAGER 09/13/2017 2:37 PM APARTMENT MAINTENANCE MANAGER Narrative [facility] - 09/13/2017 3:42 PM APARTMENT MAINTENANCE MANAGER Hoang Chadwick MD LAB MICROBIOLOGY - GENER AL ORDERABLES Final Result [facility] [address] Department [place] [address] from Last 3 Months or Most Recently Relevant to Health Maintenance Insurance MEDICARE [facility] MEDICARE [facility] MEDIC[facility] Address: [id number] [place] [address] [facility] MEDICARE [facility] Address: [address] [address] [place] [address] [facility] MEDICARE [facility] Address: [address] [address] Advance Directives For more information, please contact: [phone] * Full Code (Latest Code Status on File) Date Activated Date Inactivated Comments 08/06/2022 9:14 AM 08/06/2022 6:53 PM * Full Code Date Activated Date Inactivated Comments 04/14/2019 6:13 PM 04/16/2019 5:39 PM Care Teams Route Inspector Relationship Specialty Start Date End Date Hoang Chadwick MD [address] [address] PCP - General 10/26/16 Hoang Chadwick MD [address] [address] 10/26/16
== END 2024-10-30 13:35 | disposition home or self-care (01) ==
LOC: ANHIMG 13:36
PROVIDERS: Visit Provider Internal Medicine
DX: Z13.820 Encounter for screening for osteoporosis (principal); Z78.0 Asymptomatic menopausal state
CPT/HCPCS: 77080

== ENCOUNTER 2024-12-04 14:21 | Outpatient (CLI) | payer MEDICARE, SELFPAY ==
--- NOTE | ~2024-12-04 | XR_ITS ---
EXAMINATION: XR chest 2V Exam Date/Time: 12/04/2024 14:35 CDT HISTORY: HX OF BLADDER CANCER Comparison: 12/06/2023. RESULT: Lines, tubes, and devices: None. Lungs and pleura: Clear. Eventration/elevation of the anterior right hemidiaphragm, with associated atelectasis/scar. Cardiomediastinal silhouette: Stable. Other: No acute osseous or upper abdominal finding. IMPRESSION: No acute cardiopulmonary process. Reviewed, dictated and finalized at location K.
--- OUTSIDE RECORDS SUMMARY | 2024-12-04 14:31 | XMS_ITS | Continuity of Care Document ---
Author Organization [facility] Address [address] [place] [address] Phone Care Team Providers Care Mechanic Foreman Name Role Phone Gareth SCHNEIDER, [place] Unavailable [...] [facility] , [address], [place], [address], [place] tel:[phone] [facility] No Information Gareth Hamsa. [address], [place], [place], [id number]. tel:[phone] OFFICE/OUTPAT IENT VISIT EST [facility] , [address], [place], [address], [place] tel:[phone] [facility] allergy evaluation (chief complaint) Allergic drug rashPenicilli n allergy Gareth Hamsa. [address], [place], [place], [id number]. tel:[phone] OFFICE CONSULTATION [facility] , [address], [place], [place], [facility], tel:[phone] [facility] allergy evaluation (chief complaint) Allergic drug rash Gareth Hamsa. [address], [place], [place], [id number]. tel:[phone] Family History Family Member Type Diagnosis Age At Onset Mother Problem (finding) coronary arterioscleros is Problem (finding) Family history of coronary arteriosclerosis Problem (finding) Family history of malignant neoplasm of urinary bladder Payers Payer name Insurance type Covered green party ID Authoriza tion(s) [facility] Choice/Choice Plus E2 [id number] Social History Type Description Quantity Date Captured [...]
--- OUTSIDE RECORDS SUMMARY | 2024-12-04 14:31 | XMS_ITS | Encounter Summary ---
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
--- OUTSIDE RECORDS SUMMARY | 2024-12-04 14:31 | XMS_ITS | Clinical Summary ---
Author Organization [facility] Address [address] [place] [address] Care Team Providers Care Pole Truck Driver Name Role Phone Hoang Chadwick MD Primary Care Provider + Hoang Chadwick MD Unavailable [phone] Allergies Active Allergy Reactions Criticality Noted Date [...] 1 tablet (75 mcg total) by mouth fire behavior analyst before breakfast 90 tablet 3 4 Active [...] (03/05/2022): Added automatically from request for surgery [id number] Assessment & Plan (11/03/2023 3:51 PM CDT): [...] Encounters Date Type Department Care Team Description 11/02/2024 Telephone [facility] Primary Care at [facility] [address], [place] [address] Hoang Chadwick MD 09/14/2024 10:30 AM CIRCLE CUTTING SAW OPERATOR Office Visit [facility] Medical [facility] Primary Care at [facility] 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 file Not on file Not on file Obstetrics History Last Filed Vital Signs Vital Sign Reading Time Taken Comments Blood Pressure 124/74 09/14/2024 10:27 AM CIRCLE CUTTING SAW OPERATOR Pulse 80 09/14/2024 10:27 AM CIRCLE CUTTING SAW OPERATOR Temperature 36.3 C (97.3 F) 01/29/2024 3:56 PM CDT Respiratory Rate 18 01/29/2024 3:56 PM CDT Oxygen Saturation 96% 09/14/2024 10:27 AM CIRCLE CUTTING SAW OPERATOR Inhaled Oxygen Concentration - - Weight 87.5 kg (193 lb) 09/14/2024 10:27 AM CIRCLE CUTTING SAW OPERATOR Height 165.1 cm (5' 5 ) 09/14/2024 10:27 AM CIRCLE CUTTING SAW OPERATOR Body Mass Index 32.12 09/14/2024 10:27 AM CIRCLE CUTTING SAW OPERATOR Plan of Treatment Health Maintenance Due Date Last Done Comments Covid-19 Vaccine (2023-2 5 season) 2024 04/06/2024, [...] Completed 09/13/2017 Pneumococcal vaccine 65+ Completed 05/09/2019, 1007/2017 Zoster Vaccine Completed 02/09/2020, 08/26, 08/11/2015 Osteoporosis Screening-Bone Density Scan Discontinued 05/26/2022, 03/12/2020, 03/19/2017 Colon Cancer Screening-CT Colonography Discontinued 08/06/2022, 01/20/2017, [...] Procedure Name Priority Date/Time Associated Diagnosis Comments BONE DENSITY Schedule Routine, Read Routine (OP Routine) 10/30/2024 1:53 PM CDT SCREENING MAMMOGRAM 2D BILATERAL Schedule Routine, Read Routine (OP Routine) 04/06/2024 2:39 PM CDT COLONOSCOPY 08/06/2022 10:14 AM CIRCLE CUTTING SAW OPERATOR DEXA AXIAL SKELETON BONE DENSITY 1 OR MORE SITES Schedule Routine, Read Routine (OP Routine) 05/26/2022 HEPATITIS C ANTIBODY Routine 09/13/2017 10:12 AM CIRCLE CUTTING SAW OPERATOR Encounter for hepatitis C screening test for low risk patient from Last 3 Months or Most Recently Relevant to Health Maintenance Results * BONE DENSITY (10/30/2024 1:53 PM CDT) Anatomical Region Laterality Modality N/A Radiographic Flora ging us Historical Provider MD SALDAÑA DXA PROCEDURES Edited Result - Final * Screening Mammogram 2D Bilateral (04/06/2024 2:39 PM CDT) SCRIBED BI-RADS 1 Anatomical Region Laterality Modality Breast Bilateral Mammography us Historical Provider MD SALDAÑA MAMMO PROCEDURES Elisa l Result * COLONOSCOPY (08/06/2022 10:14 AM CIRCLE CUTTING SAW OPERATOR) Anatomical Region Laterality Modality Other Narrative Procedure Note Linden Henry MD - 08/06/2022 10:14 AM CST ENDOSCOPY LAB Patient Name: Aydee Lopez Procedure Date: 08/06/2022 10:14 AM Admit Type: Outpatient Room: [facility] Date of : 1955 Instrument Name: CF-[id number] [...] the bowel preparation was evaluatedusing the BBPS ([place] Bowel Preparation Scale) withscores of: Right Colon [...] 08/06/2022 10:14 AM Scope In: Scope Out: us Linden Henry MD ENDOSCOPY PROCEDURES Final Result * Dexa Axial Skeleton Bone Density 1 or 2 Site (05/26/2022) SCRIBED DXA T-SCORE -0.2 SCRIBED DXA Z-SCORE 1.7 SCRIBED DXA BMD 0.843 Anatomical Region Laterality Modality Body N/A Radiographic Flora ging Historical Provider MD SALDAÑA DXA PROCEDURES Final Result * Hepatitis C antibody (09/13/2017 10:12 AM CIRCLE CUTTING SAW OPERATOR) Pathologist [facility] Hep C Ab Non-Reactiv e Non-Reactiv e [facility] Blood specimen (specimen) 09/13/2017 10:12 AM CIRCLE CUTTING SAW OPERATOR 09/13/2017 2:37 PM CIRCLE CUTTING SAW OPERATOR [facility]ative [facility] - 09/13/2017 3:42 PM CIRCLE CUTTING SAW OPERATOR Hoang Chadwick MD LAB MICROBIOLOGY - GENER AL ORDERABLES Final Result [facility] [address] Department [place] [address] from Last 3 Months or Most Recently Relevant to Health Maintenance Insurance MEDICARE [facility] Address: [address] [place] [phone] MEDICARE [facility] Address: [address] [place] [phone] [facility]IC[facility] Address: [address] [place] [phone] Advance Directives For more information, please contact: [phone] * Full Code (Latest Code Status on File) Date Activated Date Inactivated Comments 08/06/2022 9:14 AM 08/06/2022 6:53 PM * Full Code Date Activated Date Inactivated Comments 04/14/2019 6:13 PM 04/16/2019 5:39 PM Care Teams Pole Truck Driver Relationship Specialty Start Date End Date Hoang Chadwick MD [address] [address] PCP - General 10/26/16 Hoang Chadwick MD [address] [address] 10/26/16
--- OUTSIDE RECORDS SUMMARY | 2024-12-04 14:31 | XMS_ITS | Encounter Summary ---
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 us Historical Provider LAB BLOOD ORDERABLES Elisa l Result documented in this encounter Visit Diagnoses Not on filedocumented in this encounter Care Teams As400 Analyst Relationship Specialty Start Date End Date Hoang Chadwick MD [address] [address] PCP - General 10/26/16 Hoang Chadwick MD [address] [facility] [address], [place] [address] 10/26/16 documented as of this encounter
--- OUTSIDE RECORDS SUMMARY | 2024-12-04 14:31 | XMS_ITS | Referral Summary ---
Author Organization [facility] Address [address] [place] [address] Care Team Providers Care Rolling Machine Operator Automatic Name Role Phone Hoang Chadwick MD Primary Care Provider + Hoang Chadwick MD Unavailable [phone] Encounters Date Type Department Care Team Description 11/02/2024 Telephone [facility] Primary Care at [address] [phone] Hoang Chadwick MD 09/14/2024 10:30 AM SOIL CONSERVATION TEACHER Office Visit [facility] Primary Care at [address] [phone] Hoang Chadwick MD Hypercholesterolemia (Primary Dx); 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; Essential hypertension; Moderate episode of recurrent major depressive disorder (HCC); History of primary malignant neoplasm of urinary bladder from Last 3 Months Allergies Active Allergy [...] 1 tablet (75 mcg total) by mouth steamboat inspector before breakfast 90 tablet 3 4 Active [...] (03/05/2022): Added automatically from request for surgery [id number] Assessment & Plan (11/03/2023 3:51 PM CDT): [...] 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 on file Not on file Not on file Last Filed Vital Signs Vital Sign Reading Time Taken Comments Blood Pressure 124/74 09/14/2024 10:27 AM SOIL CONSERVATION TEACHER Pulse 80 09/14/2024 10:27 AM SOIL CONSERVATION TEACHER Temperature 36.3 C (97.3 F) 01/29/2024 3:56 PM CDT Respiratory Rate 18 01/29/2024 3:56 PM CDT Oxygen Saturation 96% 09/14/2024 10:27 AM SOIL CONSERVATION TEACHER Inhaled Oxygen Concentration - - Weight 87.5 kg (193 lb) 09/14/2024 10:27 AM SOIL CONSERVATION TEACHER Height 165.1 cm (5' 5 ) 09/14/2024 10:27 AM SOIL CONSERVATION TEACHER Body Mass Index 32.12 09/14/2024 10:27 AM SOIL CONSERVATION TEACHER Plan of Treatment Not on file Procedures Procedure Name Priority Date/Time Associated Diagnosis Comments BONE DENSITY Schedule Routine, Read Routine (OP Routine) 10/30/2024 1:53 PM CDT SCREENING MAMMOGRAM 2D BILATERAL Schedule Routine, Read Routine (OP Routine) 04/06/2024 2:39 PM CDT COLONOSCOPY 08/06/2022 10:14 AM SOIL CONSERVATION TEACHER DEXA AXIAL SKELETON BONE DENSITY 1 OR MORE SITES Schedule Routine, Read Routine (OP Routine) 05/26/2022 HEPATITIS C ANTIBODY Routine 09/13/2017 10:12 AM SOIL CONSERVATION TEACHER Encounter for hepatitis C screening test for [...] l Result * COLONOSCOPY (08/06/2022 10:14 AM SOIL CONSERVATION TEACHER) Anatomical Region Laterality Modality Other Narrative Procedure Note Linden Henry MD - 08/06/2022 10:14 AM CST ENDOSCOPY LAB Patient Name: Aydee Lopez Procedure Date: 08/06/2022 10:14 AM Admit Type: Outpatient Room: [facility] 3 Date of : 1955 Instrument [...] the bowel preparation was evaluatedusing the BBPS ([place] Bowel Preparation Scale) withscores of: Right Colon [...] N/A Radiographic Flora ging Historical Provider MD IMG DXA PROCEDURES Final Result * Hepatitis C antibody (09/13/2017 10:12 AM SOIL CONSERVATION TEACHER) Pathologist [facility] Hep C Ab Non-Reactiv e Non-Reactiv e [facility] Blood specimen (specimen) 09/13/2017 10:12 AM SOIL CONSERVATION TEACHER 09/13/2017 2:37 PM SOIL CONSERVATION TEACHER Narrative [facility] - 09/13/2017 3:42 PM SOIL CONSERVATION TEACHER Hoang Chadwick MD LAB MICROBIOLOGY - GENER AL ORDERABLES Final Result [facility] [address] Department [place] [address] from Last 3 Months or Most Recently Relevant to Health Maintenance Insurance MEDICARE [facility] MEDICARE ADVANTAGE MEDICARE ADVANTAGE MEDICARE ADVANTAGE Advance Directives For more information, please contact: [phone] * Full Code (Latest Code Status on File) Date Activated Date Inactivated Comments 08/06/2022 9:14 AM 08/06/2022 6:53 PM * Full Code Date Activated Date Inactivated Comments 04/14/2019 6:13 PM 04/16/2019 5:39 PM Care Teams Rolling Machine Operator Automatic Relationship Specialty Start Date End Date Hoang Chadwick MD [address] [address] PCP - General 10/26/16 Hoang Chadwick MD [address] [address] 10/26/16
--- OUTSIDE RECORDS SUMMARY | 2024-12-04 14:31 | XMS_ITS | Encounter Summary ---
Author Organization [facility] Address [address] [place] [address] Care Team Providers Care Forestry Contractor Name Role Phone Hoang Chadwick MD Primary Care Provider [phone] Rachel Lazo RN Unavailable [phone] Encounter Details Date Type Department Care Team (Late st Contact Info) Description 11/12/2021 Lab Requisition [facility] Care Pathology Lab [address] [place] [address] Linda Sinha MD [address] [place], [place] [id number] Illness, unspecified Social History Tobacco Use Types Packs/Day Years Used Date Smoking Tobacco: Never Alcohol Use Standard Drinks/Week Comments No 0 (1 standard drink = 0.6 oz pur e alcohol) Comments No Sex and Gender Information Value Date Recorded Sex Assigned at Not on file Legal Sex Female 6:42 AM CHIEF ENGINEER WATERWORKS Gender Identity Not on file Sexual Orientation Not on file documented as of this encounter Functional Status * Is person deaf or have serious hearing difficulty? Answer Date of Assessment Author No 02/10/2014 11:16 AM CDT Latasha Ramsey, RN * Is person blind or have serious difficulty seeing? Answer Date of Assessment Author No 02/10/2014 11:16 AM CDT Latasha Ramsey RN * Does person have serious difficulty walking/climbing stairs? Answer Date of Assessment Author No 02/10/2014 11:16 AM CDT Latasha Ramsey RN * Does person have difficulty dressing/bathing? Answer Date of Assessment Author No 02/10/2014 11:16 AM CDT Latasha Ramsey RN * Does person have difficulty doing errands alone? Answer Date of Assessment Author No 02/10/2014 11:16 AM CDT Latasha Ramsey RN documented as of this encounter Mental Status * Does person have difficulty concentrating/remembering/making decisions? Answer Entry Date Author No 02/10/2014 11:16 AM KAILYNT Latasha Ramsey RN documented in this encounter Plan of Treatment Not on [...] and squamous cells 11/14/2021 3:38 PM CDT [facility] Amendment electronically signed by Aissatou Smith on 11/14/2021 at 3:38 PM Microscopic Description and Comment Performed. 11/14/2021 3:38 PM CDT [facility] Clinical History History of bladder cancer, Cystoscopy negative 11/14/2021 3:38 PM CDT [facility] Materials Received Prepared slide received from [facility] [id number]. All material will be returned. 11/14/2021 3:38 PM CDT [facility] Disclaimer The performance characteristics of all immunohistochemical and indirect immunofluorescence stains (if any) cited in this report were determined by the Histopathology Laboratory of [facility]. Some of these tests were developed by [...] attending (teaching) pathologist. 11/14/2021 3:38 PM CDT [facility] PATH[facility] Amended Report CHANGED Prepared slide received from [facility] [id number]. All material will be returned. TO Prepared slide received from [facility] [id number] All material will be returned. 11/14/2021 3:38 PM CDT [facility] PATH[facility] Case Report Surgical Pathology Report Case: [id number] Authorizing Provider: Linda Sinha MD Collected: 11/12/2021 01:49 PM Ordering Location: [facility] Pathology Lab Received: 11/12/2021 01:49 PM Pathologist: Saran Coulter MD Specimen: Slide Consultation 11/14/2021 3:38 PM CDT [facility] PATH[facility] Embedded Images 11/14/2021 3:38 PM CDT [facility] PATH[facility] Pathology/Cytolo gy SURGICAL PATHOLOGY CONSULTATION AND REPORT ON REFERRED SLIDES PREPARED ELSEWHERE / Unknown 11/12/2021 1:49 PM CDT 11/12/2021 1:49 PM CDT us Linda Sinha MD LAB - PATHOLOGY/CYTOLOGY ORDERAB LES Edited Result - Final [facility] PATH[facility]Y LAB [address] [place], [place] [address] [phone] documented in this encounter Visit Diagnoses Diagnosis Illness, unspecified documented in this encounter Care Teams Forestry Contractor Relationship Specialty Start Date End Date Hoang Chadwick MD [address] [address] PCP - General 12/21/08 Rachel Lazo RN Tester Operator Helper 02/12/14 documented as of this encounter
--- OUTSIDE RECORDS SUMMARY | 2024-12-04 14:31 | XMS_ITS | Clinical Summary ---
Author Organization [facility] Address [address] [place] [address] Care Team Providers Care Graphic Artist Name Role Phone Hoang Chadwick MD Primary Care Provider [phone] Rachel Lazo RN Unavailable [phone] Source Comments [facility],non-owned Affiliates and Associated Physician Practices is amultiple site organization consisting of ambulatory clinics and hospital sitesin [place], [place], [place] and [place]. This disclosure is being madepursuant to the Care Everywhere program and may not contain all information available regarding this patient. Last updated 18.[facility] Allergies Active Allergy Reactions Criticality Noted Date Comments Anthony Inhibitors Cough 01/08/2010 Adhesive Sensitivity 02/10/2014 Medications * Be aware that medications may not be up to date on this document. Alwaysverify current medications with the patient. Nutritional Supplements (JUICE PLUS FIBRE PO) Take by mouth. Active hyoscyamine 0.125 MG tabletIndications: Ischemic colitis, enteritis, or enterocolitis (HCC) Dissolve 1 Tab under the tongue every 4 hours as needed for Spasms. 60 Tab 6 3 Active PATADAY 0.2 % ophthalmic solution INSTILL 1 DROP ONCE DAILY DIRECTED 3 Bottle 3 5 Active hydrochlorothiazid e (HYDRODIURIL) 25 MG tablet TAKE 1 TABLET DAILY 90 Tab 2 5 Active KLOR-CON M20 20 MEQ tablet TAKE 1 TABLET DAILY 90 Tab 2 5 Active losartan (COZAAR) 50 MG tablet TAKE 1 TABLET DAILY 90 Tab 2 5 Active levothyroxine (SYNTHROID) 100 MCG tablet TAKE 1 TABLET DAILY BEFORE BREAKFAST 90 Tab 2 5 Active CRESTOR 5 MG tablet TAKE 1 TABLET DAILY 90 Tab 3 5 Active triamcinolone acetonide (KENALOG) 0.1 % creamIndications:A topic eczema Apply to affected area 3 times daily. 80 g 3 5 Active EFFEXOR XR 75 MG capsuleIndications :RAD (generalized anxiety disorder) 1 Cap daily with breakfast. 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 (AF LURIA, FLUZONE TRIVALENT; 6MO+) (IIV3) 04/14/2013,06/22/2012,04/22/2011,2009,07/10/2009 INFLUENZA VACCINE, QUADR. (A FLURIA, FLUZONE QUADRIVALENT; [...] on file Legal Sex Female 6:42 AM SAFETY SEALER Gender Identity Not on file Sexual Orientation [...] FLEX SIG - COLON CA SCREENING 1955 HEPATITIS C SCREENING 04/05/1971 PNEUMOCOCCAL VACCINE 50+ (1 of 1 - PCV) 2003 ZOSTER VACCINE (1 of 2) 2003 BONE DENSITY TESTING 08/19/2015 08/19/2013 MAMMOGRAM 08/21/2015 08/21/2013, 07/27, 09/24/2011, Additional history exists COLON MONITORING 02/13/2024 02/12/2014, , 02/12/2014 COLONOSCOPY - COLON CA SCREENING 02/13/2024 02/12/2014, 02/12/2014, 02/12/2014, Additional history exists Colorectal Cancer Screening 02/13/2024 DTAP/TDAP/TD VACCINES (2 - Td or Tdap) 02/20/2024 02/19/2014 COVID-19 VACCINE (1 - 2023-25 season) 2024 DEPRESSION SCREENING 07/26/2024 INFLUENZA VACCINE [...] Procedure Name Priority Date/Time Associated Diagnosis Comments ENDOSCOPY, COLON, DIAGNOSTIC Routine 02/12/2014 10:42 AM CDT MAMMO BILAT SCREENING Routine 08/21/2013 DEXA BONE DENSITY 2 SITES Routine 08/19/2013 Screening for unspecified condition from Last 3 Months or Most Recently Relevant to Health Maintenance Results * ENDOSCOPY, COLON, DIAGNOSTIC (02/12/2014 10:42 AM CDT) Report Endoscopy POC __ _ Patient Name: Aydee Lopez Procedure Date: 02/12/2014 10:42 AM Date of : 1955 Admit Type: Inpatient Age: 58 Gender: Female Attending MD: Hebert Mahmood MD __ _ Procedure: Colonoscopy Indications: Abdominal pain, Hematochezia, Abnormal CT of the GI tract Providers: Hebert Mahmood MD (Doctor), Shabbir Wright RN, Jessie Pierre RN Referring MD: Hoang Chadwick MD (Referring MD) Medicines: Monitored Anesthesia Care Complications: No immediate complications. Estimated blood loss: Minimal. __ _ Procedure: After I obtained informed consent, the scope was passed under direct vision. Throughout the procedure, the patient's blood pressure, pulse, and oxygen saturations were monitored continuously. The Colonoscope was introduced through the anus and advanced to the cecum, identified by appendiceal orifice and ileocecal valve. The colonoscopy was performed without difficulty. The patient tolerated the procedure well. The quality of the bowel preparation was excellent. Impression: - Localized moderate inflammation was found at the splenic flexure secondary to ischemic colitis. - The examination was otherwise normal. - Multiple biopsies were obtained at the splenic flexure. Findings: Localized moderate inflammation characterized by congestion (edema), erythema and shallow ulcerations was found at the splenic flexure. Multiple biopsies were obtained with cold forceps for histology in a targeted manner at the splenic flexure. Estimated blood loss was minimal. The exam was otherwise without abnormality. __ _ Recommendation: - Repeat colonoscopy in 10 years for screening purposes. Procedure Code(s): --- Professional --- 08029, Colonoscopy, flexible, proximal to splenic flexure; with biopsy, single or multiple --- Technical --- 51531, Colonoscopy, flexible, proximal to splenic flexure; with biopsy, single or multiple Diagnosis Code(s): --- Professional --- 789.00, Abdominal pain, unspecified site 557.9, Unspecified vascular insufficiency of intestine 578.1, Blood in stool 793.4, Nonspecific (abnormal) findings on radiological and other examination of gastrointestinal tract --- Technical --- 789.00, Abdominal pain, unspecified site 557.9, Unspecified vascular insufficiency of intestine 578.1, Blood in stool 793.4, Nonspecific (abnormal) findings on radiological and other examination of gastrointestinal tract CPT copyright 2013 [employer]. All rights reserved. The codes documented in this report are preliminary and upon yarn weigher review may be revised to meet current compliance requirements. Hebert Mahmood MD 02/12/2014 11:09 AM This report has been signed electronically. Number of Addenda: 0 Note Initiated On: 02/12/2014 10:42 AM [facility] ENDOSCOPY 02/12/2014 10:4 2 AM CDT us Hebert Mahmood MD GI PROCEDURE ORDERABLES Edited Result - Final [facility] ENDOSCOPY * MAMMO SCREENING DIGITAL IMAGE BILAT (08/21/2013) Anatomical Region Laterality Modality Breast Bilateral Other us Provider Unknown MAMMO ORDERABLES Final Result * DEXA BONE DENSITY 2 SITES (08/19/2013) Anatomical Region Laterality Modality Other us Hoang Chadwick MD DEXA ORDERABLES Final Res ult from Last 3 Months or Most Recently Relevant to Health Maintenance Insurance [facility] MEDICARE Advance Directives Documents on File Type Date Recorded Patient Cardiovascular Surgeon Expl anation Adv Directive/Living Will/POA 02/13/2014 4:23 PM * Full Code (Latest Code Status on File) Date Activated Date Inactivated Comments 02/10/2014 11:08 AM 02/12/2014 8:37 PM Care Teams Graphic Artist Relationship Specialty Start Date End Date Hoang Chadwick MD [address] [address] PCP - General 12/21/08 Rachel Lazo RN Wool Sampler 02/12/14
== END 2024-12-04 14:22 | disposition home or self-care (01) ==
PROVIDERS: Visit Provider Urology
DX: Z85.51 Personal history of malignant neoplasm of bladder (principal)
CPT/HCPCS: 71046